=== PATIENT | female | born 1960 | race Caucasian/White ===

== ENCOUNTER 2019-06-26 11:56 | Day surgery (SDC) | payer MEDICARE ==
[2019-06-26] MEDS ORDERED: Depo-Medrol 40 MG/ML IM ONE (11:57)
[2019-06-26] MEDS ORDERED: Sodium Chloride 0.9(Preservative Free) 10 ML IJ ONE (11:57)
[2019-06-26] MEDS ORDERED: Xylocaine 1% Vial 30 ML PF IJ ONE (11:57)
[2019-06-26] MEDS ORDERED: MORPHINE SULFATE 10 MG/ML ONE (14:12)
[2019-06-26] MEDS ORDERED: Ketamine HCl 50 MG/ML ONE (14:16)
[2019-06-26] MEDS ORDERED: DIPRIVAN 200 MG/20 ML IV ONE (14:16)
--- NOTE | 2019-06-26 16:24 | XRAY ---
Indication: Lumbar VELIA. Intraoperative fluoroscopy was provided for 16 seconds. 2 digital spot images submitted for interpretation demonstrates midline needle tip just posterior to the L4-L5 interspace. Correlate with intraoperative findings/report.
--- NOTE | 2019-06-26 16:39 | XRAY ---
16 seconds fluoroscopy time in surgery for lumbar VELIA.
[2019-06-26] MEDS ORDERED: Lactated Ringers 1,000 ML IV ONE (18:22)
== END 2019-06-26 14:42 ==
LOC: SDC-PAIN 11:56
PROVIDERS: ATTEND Psychiatry & Neurology Pain Medicine
DX: M54.16 Radiculopathy, lumbar region (principal); M06.9 Rheumatoid arthritis, unspecified; J44.9 Chronic obstructive pulmonary disease, unspecified; L40.50 Arthropathic psoriasis, unspecified; Z79.899 Other long term (current) drug therapy
CPT/HCPCS: 62323; 72100; 77003; J2270; J2704; Q9966

== ENCOUNTER 2019-10-30 08:53 | Day surgery (SDC) | payer MEDICARE ==
[2019-10-30] MEDS ORDERED: Depo-Medrol 40 MG/ML IM ONE (08:54)
[2019-10-30] MEDS ORDERED: Sodium Chloride 0.9% 10 ML FLUSH Syringe IJ ONE (08:54)
[2019-10-30] MEDS ORDERED: DIPRIVAN 200 MG/20 ML IV ONE (10:38)
[2019-10-30] MEDS ORDERED: Ketamine HCl 50 MG/ML ONE (10:38)
[2019-10-30] MEDS ORDERED: Lactated Ringers 1,000 ML IV ONE (11:47)
--- NOTE | 2019-10-30 11:54 | XRAY ---
Indication: Right L4-S1 VELIA. Intraoperative fluoroscopy was provided for 38 seconds. 4 digital spot images submitted for interpretation demonstrates posterior needle tips projecting over the expected course of the right L4 and L5 nerve roots. Small amount of contrast injected for needle tip placement. Correlate with intraoperative findings/report.
--- NOTE | 2019-10-30 11:57 | XRAY ---
38 seconds fluoroscopy time in surgery for right L4-S1 transforaminal VELIA.
== END 2019-10-30 11:20 | disposition home or self-care (01) ==
LOC: SDC-PAIN 08:53
PROVIDERS: ATTEND Psychiatry & Neurology Pain Medicine
DX: M54.16 Radiculopathy, lumbar region (principal); M06.9 Rheumatoid arthritis, unspecified; J44.9 Chronic obstructive pulmonary disease, unspecified; L40.50 Arthropathic psoriasis, unspecified; F41.8 Other specified anxiety disorders; Z79.899 Other long term (current) drug therapy
CPT/HCPCS: 64483; 64484; 72100; 77003; J1030; J2704; Q9966

== ENCOUNTER 2019-11-21 16:00 | Emergency (ER) | payer MEDICARE ==
--- NOTE | 2019-11-21 16:12 | ERPHSYRPT ---
- History of Present Illness Time Seen by Provider: 11/21/19 16:12 Source: patient Exam Limitations: no limitations Physician History: This is a 59-year-old obese white female with chronic back problems and pain. She sees a pain specialist and is prescribed OxyContin. She also is taking Humira and is seeing a pillow agent. Patient did not fall or have any type of trauma. Her pain has worsened in the last 2 days and does not getting any sleep. Patient states her symptoms are on the right side into her back and shoot down her right buttock into her leg. Timing/Duration: day(s) Severity: moderate Modifying Factors: Improves With: movement (Worsens) Allergies/Adverse Reactions: No Known Drug Allergies Allergy (Verified 11/21/19 16:24) Home Medications: Diclofenac Sodium [Voltaren] 75 mg PO BID 10/05/12 [History] Lisinopril 20 mg [Zestril 20 MG] 20 mg PO DAILY 10/05/12 [History] PARoxetine HCl [Paxil] 40 mg PO DAILY 10/05/12 [History] Atorvastatin Calcium [Lipitor 20MG Tablet] 20 mg PO DAILY 01/13/16 [History] Morphine Sulfate Ir 15 mg [Msir 15 mg] 15 mg PO Q4-6HPRN PRN 01/13/16 [ History] Methotrexate Sodium 2.5 mg [Trexall 2.5 mg] 1 ea WEEKLY 11/21/19 [History] Oxycodone HCl/Acetaminophen [Oxycodon-Acetaminophen 7.5-325] 1 ea QID 11/21/19 [ History] Hx Tetanus, Diphtheria Vaccination/Date Given: No Hx Influenza Vaccination/Date Given: No Hx Pneumococcal Vaccination/Date Given: No Travel Risk - International Travel Have you traveled outside of the country in past 3 weeks: No Have you or anyone close to you been diagnosed with or: No Do your reside in a community with a known COVID-19 case?: Yes If Yes where:: [place] - Coronavirus Screening Has patient experienced Coronavirus symptoms: No - Review of Systems Constitutional: No Symptoms Eyes: No Symptoms Ears, Nose, & Throat: No Symptoms Respiratory: No Symptoms Cardiac: No Symptoms Abdominal/Gastrointestinal: No Symptoms Genitourinary Symptoms: No Symptoms Musculoskeletal: Back Pain Skin: No Symptoms Neurological: No Symptoms Psychological: No Symptoms Endocrine: No Symptoms Hematologic/Lymphatic: No Symptoms Immunological/Allergic: No Symptoms All Other Systems: Reviewed and Negative - Past Medical History Pertinent Past Medical History: Yes Neurological History: No Pertinent History ENT History: No Pertinent History Cardiac History: High Cholesterol, Hypertension Respiratory History: Bronchitis, COPD Endocrine Medical History: Other Musculoskeletal History: Degenerative Disk Disease, Fibromyalgia, Osteoarthritis , Rheumatoid Arthritis GI Medical History: No Pertinent History History: No Pertinent History Psycho-Social History: Anxiety Female Reproductive Disorders: Cervical Cancer Other Medical History: CERVICAL CANCER 1979 - TOTAL HYSTERECTOMY PERFORMED. HX OF PSORIATIC AND GOUTY ARTHRITIS. DEPRESSION - Past Surgical History Past Surgical History: Yes Neuro Surgical History: No Pertinent History Cardiac: No Pertinent History Respiratory: No Pertinent History Gastrointestinal: No Pertinent History Genitourinary: No Pertinent History Musculoskeletal: No Pertinent History Female Surgical History: Lumpectomy Other Surgical History: cervical cone bx,tubal pregnacy - Social History Smoking Status: Former smoker Exposure to second hand smoke: No Drug Use: none Patient Lives Alone: No - Nursing Vital Signs Nursing Vital Signs: Initial Vital Signs Temperature 97.8 F 11/21/19 16:17 Pulse Rate 78 11/21/19 16:17 Respiratory Rate 18 11/21/19 16:17 Blood Pressure 142/74 11/21/19 16:17 O2 Sat by Pulse Oximetry 95 11/21/19 16:17 Pain Scale Pain Intensity 10 - Physical Exam General Appearance: mild distress, alert, anxiety, obese Eye Exam: PERRL/EOMI, eyes nml inspection Ears, Nose, Throat Exam: normal ENT inspection, moist mucous membranes Neck Exam: normal inspection, non-tender, supple, full range of motion Respiratory Exam: lungs clear, airway intact, No chest tenderness, No respiratory distress Gastrointestinal/Abdomen Exam: No tenderness Pelvic Exam: not done, deferred Rectal Exam: not done Back Exam: normal inspection, normal range of motion, No CVA tenderness, No vertebral tenderness Extremity Exam: normal inspection, normal range of motion, pelvis stable Neurologic Exam: alert, oriented x 3, cooperative, jewel flat surfacer II-XII nml as tested Skin Exam: normal color, warm, dry Lymphatic Exam: No adenopathy SpO2 Interpretation: normal O2 Delivery: Room Air - Course Nursing assessment & vital signs reviewed: Yes Ordered Tests: Active Orders 24 hr Category Date Time Status Isolation, Initiate & Maintain Q4H Care 04/09/20 16:23 Active Medication Summary Discontinued Medications Generic Name Dose Route Start Last Admin Trade Name Carlosq PRN Reason Stop Dose Admin Hydromorphone HCl 1 mg 11/21/19 16:50 Hydromorphone 1 Mg/Ml Ampule IM 11/21/19 16:51 STAT ONE Lorazepam 1 mg 11/21/19 16:51 Ativan 2 Mg/1 Ml Vial IM 11/21/19 16:52 STAT ONE Promethazine HCl 25 mg 11/21/19 16:51 Phenergan 25 Mg Inj IM 11/21/19 16:52 STAT ONE - Progress Progress: improved Counseled pt/family regarding: diagnosis, need for follow-up - Departure Departure Disposition: Home Clinical Impression: Back pain, Sciatica Condition: Stable Critical Care Time: No Referrals: CL SRIVASTAVA MD [Primary Care Provider] - Additional Instructions: Continue your pain medication regimen as prescribed. Call your pain specialist tomorrow morning for further management. Follow-up with a neurologist, your primary care physician, and your pillow agent for further management.
[2019-11-21 16:23] VITALS: O2SAT 95
[2019-11-21] MEDS ORDERED: Hydromorphone 1 mg/ml Ampule IM ONE (16:50)
[2019-11-21] MEDS ORDERED: Ativan 2 MG/1 ML VIAL IM ONE (16:51)
[2019-11-21] MEDS ORDERED: Phenergan 25 MG INJ IM ONE (16:51)
[2019-11-21] MEDS ORDERED: Phenergan 25 MG INJ ONE (16:59)
[2019-11-21] MEDS ORDERED: Ativan 1 MG PO ONE (16:59)
[2019-11-21] MEDS ORDERED: Ativan 1 MG ONE (16:59)
[2019-11-21] MEDS ORDERED: Hydromorphone 1 mg/ml Ampule ONE (17:00)
[2019-11-21 17:46] VITALS: BP 130/61; PULSE 70
== END 2019-11-21 18:01 | disposition home or self-care (01) ==
LOC: ED 16:00
DX: M54.9 Dorsalgia, unspecified (principal); M54.31 Sciatica, right side; Z79.891 Long term (current) use of opiate analgesic; Z79.899 Other long term (current) drug therapy; E78.00 Pure hypercholesterolemia, unspecified; I10 Essential (primary) hypertension; J44.9 Chronic obstructive pulmonary disease, unspecified; M06.9 Rheumatoid arthritis, unspecified; Z85.41 Personal history of malignant neoplasm of cervix uteri; Z87.891 Personal history of nicotine dependence
CPT/HCPCS: 96372; 99284; J1170; J2550; A9270-GY

== ENCOUNTER 2020-01-08 11:22 | Day surgery (SDC) | payer MEDICARE ==
[2020-01-08] MEDS ORDERED: Depo-Medrol 40 MG/ML IM ONE (11:23)
[2020-01-08] MEDS ORDERED: Marcaine 0.5% SDV 10 ML IM ONE (11:23)
[2020-01-08] MEDS ORDERED: DIPRIVAN 200 MG/20 ML IV ONE (12:57)
[2020-01-08] MEDS ORDERED: Ketamine HCl 50 MG/ML ONE (12:57)
--- NOTE | 2020-01-08 13:21 | XRAY ---
Indication: Right greater trochanter injection. Intraoperative fluoroscopy was provided for 9 seconds. Single digital spot image submitted for interpretation demonstrate needle tip just lateral to the right greater trochanter. Small amount of contrast injected for needle tip placement. Correlate with intraoperative findings/report.
--- NOTE | 2020-01-08 13:23 | XRAY ---
9 seconds fluoroscopy time in surgery for injection of the right greater trochanter.
[2020-01-08] MEDS ORDERED: Lactated Ringers 1,000 ML IV ONE (14:47)
== END 2020-01-08 12:26 | disposition home or self-care (01) ==
LOC: SDC-PAIN 11:22
PROVIDERS: ATTEND Psychiatry & Neurology Pain Medicine
DX: M70.61 Trochanteric bursitis, right hip (principal); M06.9 Rheumatoid arthritis, unspecified; J44.9 Chronic obstructive pulmonary disease, unspecified; L40.50 Arthropathic psoriasis, unspecified; Z79.899 Other long term (current) drug therapy
CPT/HCPCS: 20610; 73501; 77002; J1030; J2704; Q9966

== ENCOUNTER 2020-02-05 12:02 | Day surgery (SDC) | payer MEDICARE ==
[~2020-02-05 12:02] MED LIST: DIPRIVAN 200 MG/20 ML IV ONE; Ketamine HCl 50 MG/ML ONE
[2020-02-05] MEDS ORDERED: Sodium Chloride 0.9% 10 ML FLUSH Syringe IJ ONE (12:03)
[2020-02-05] MEDS ORDERED: Xylocaine 1% Vial 30 ML PF IJ ONE (12:03)
[2020-02-05] MEDS ORDERED: Depo-Medrol 40 MG/ML IM ONE (12:03)
[2020-02-05] MEDS ORDERED: Lactated Ringers 1,000 ML IV ONE (14:55)
--- NOTE | 2020-02-05 15:13 | XRAY ---
Indication: Lumbar VELIA. Intraoperative fluoroscopy was provided for 30 seconds. 2 digital spot images submitted for interpretation demonstrates posterior midline needle tip just posterior to the L4-L5 interspace. Small amount of contrast injected for needle tip placement. Correlate with intraoperative findings/report.
--- NOTE | 2020-02-05 15:30 | XRAY ---
30 seconds fluoroscopy time in surgery for lumbar VELIA.
== END 2020-02-05 13:55 | disposition home or self-care (01) ==
LOC: SDC-PAIN 12:02
PROVIDERS: ATTEND Psychiatry & Neurology Pain Medicine
DX: M54.16 Radiculopathy, lumbar region (principal); J44.9 Chronic obstructive pulmonary disease, unspecified; M06.9 Rheumatoid arthritis, unspecified; L40.50 Arthropathic psoriasis, unspecified; Z79.899 Other long term (current) drug therapy
CPT/HCPCS: 62323; 72100; 77003; J1030; J2001; J2704; Q9966

== ENCOUNTER 2020-06-03 12:11 | Day surgery (SDC) | payer MEDICARE ==
[2020-06-03] MEDS ORDERED: Depo-Medrol 40 MG/ML IM ONE (12:12)
[2020-06-03] MEDS ORDERED: BUPIVACAINE 0.5% VIAL IJ ONE (12:12)
[2020-06-03] MEDS ORDERED: Lactated Ringers 1,000 ML IV ONE (13:50)
--- NOTE | 2020-06-03 15:04 | XRAY ---
Indication: Left greater trochanter bursa injection. Intraoperative fluoroscopy was provided for 20 seconds. Single digital spot image submitted for interpretation demonstrates needle tip just lateral to the left femur greater trochanter. Small amount of contrast injected for needle tip placement. Correlate with intraoperative findings/report.
--- NOTE | 2020-06-03 15:04 | XRAY ---
Indication: Right greater trochanter bursa injection. Intraoperative fluoroscopy was provided for 11 seconds. Single digital spot image submitted for interpretation demonstrates needle tip just lateral to the right femur greater trochanter. Small amount of contrast injected for needle tip placement. Correlate with intraoperative findings/report.
--- NOTE | 2020-06-03 15:14 | XRAY ---
11 seconds of fluoroscopy was used in surgery for a right greater trochanteric bursa injection.
--- NOTE | 2020-06-03 16:55 | XRAY ---
20 seconds of fluoroscopy was used in surgery for a left greater trochanteric bursa injection.
== END 2020-06-03 14:18 | disposition home or self-care (01) ==
LOC: SDC-PAIN 12:11
PROVIDERS: ATTEND Psychiatry & Neurology Pain Medicine
DX: M70.62 Trochanteric bursitis, left hip (principal); M70.61 Trochanteric bursitis, right hip; Z79.899 Other long term (current) drug therapy; J44.9 Chronic obstructive pulmonary disease, unspecified; M06.9 Rheumatoid arthritis, unspecified; L40.50 Arthropathic psoriasis, unspecified; F41.8 Other specified anxiety disorders
CPT/HCPCS: 20610; 73501; 77002; J1030; J2704; Q9966

== ENCOUNTER 2020-09-23 12:44 | Day surgery (SDC) | payer MEDICARE ==
[2020-09-23] MEDS ORDERED: DIPRIVAN 200 MG/20 ML IV ONE ×2 (13:56→13:57)
[2020-09-23] MEDS ORDERED: Ketamine HCl 50 MG/ML ONE (13:56)
[2020-09-23] MEDS ORDERED: Versed 2 MG/2 ML Injection ONE (13:57)
[2020-09-23] MEDS ORDERED: Lactated Ringers 1,000 ML IV ONE ×2 (14:07→15:32)
--- NOTE | 2020-09-23 16:30 | XRAY ---
4 minutes and 5 seconds fluoroscopy time in surgery for placement of spinal cord stimulator.
--- NOTE | 2020-09-23 16:33 | XRAY ---
Indication: Stimulator placement. Intraoperative fluoroscopy provided for 4 minutes 5 seconds. 6 digital spot images submitted for interpretation initially demonstrates midline posterior spinal needle posterior to thoracolumbar junction with subsequent insertion of single lead epidural stimulator lead with terminating mid thoracic level, approximately T7 or T8. Correlate with intraoperative findings/report.
== END 2020-09-23 16:10 | disposition home or self-care (01) ==
LOC: SDC-PAIN 12:44
PROVIDERS: ATTEND Psychiatry & Neurology Pain Medicine
DX: Z46.2 Encounter for fitting and adjustment of other devices related to nervous system and special senses (principal); Z79.899 Other long term (current) drug therapy; J44.9 Chronic obstructive pulmonary disease, unspecified; M06.9 Rheumatoid arthritis, unspecified; L40.50 Arthropathic psoriasis, unspecified
CPT/HCPCS: 63650; 72100; 77002; C1778; J2250; J2704